=== PATIENT | male | born 1945 | race Caucasian/White ===

== ENCOUNTER 2017-09-19 09:43 | Inpatient (IN) | payer MEDICAID, MEDICARE ==
[~2017-09-19] VITALS: Ht 182.9 cm; Wt 131.5 kg
[2017-09-19 09:43] VITALS: Ht 182.9 cm; Wt 131.5 kg
[~2017-09-19 09:43] MED LIST: ALLOPURINOL100 MG PO; BACO TOP; CLEOCIN HCL300 MG PO; CLINDAMYCI600 MG/50 IV; COL100 PO; COLCHICINE0.6 M1 PO; COMTAN200 MG PO; ESCITALOPRAM10 M1 PO; FLO4 PO; HIBICLENS118 ML TOP; HUMULIN R100 U/1 M1 SQ; LAC PO; LORAZEPAM1 MG PO; MECLIZINE25 M3 PO; MELOXICAM7.5 M1; MELOXICAM7.5 M1 PO; MOM PO; MSC15 PO; NOR10T PO; NORCO1 TA2; NORCO1 TA2 PO; OMEPRAZOLE DR20 M1 PO; OXYC PO; OXYCONTIN10 MG PO; REQUIP0.5 MG; ROPINIROLE4 MG PO; SINEMET 25-1001 TAB PO; SINEMET 25-2501 TAB PO; SMZ-TMP1 TA1 PO; TERAZOSIN HCL2 MG PO; TYLENOL325 MG PO; ZESTRIL20 MG PO; ZIN PO
[2017-09-19 11:03] LABS: PLATELET COUNT 146 x10^3mcL (130-400); RED CELL DISTRIBUTION WIDTH 14.1 % (11.5-14.5)
[2017-09-19 11:04] LABS: BASOPHIL % 0 % (0-2)
[2017-09-19 11:17] LABS: CALCIUM 8.4 mg/dL (8.5-10.1); CREATININE SERUM 1.6 mg/dL (0.7-1.3)
[2017-09-19 11:23] LABS: T3 TOTAL 0.7 ng/mL
[2017-09-19 11:32] LABS: FREE T4 0.91 ng/dL (0.76-1.46); FREE THYROXINE INDEX 1.7 ug/dL (1.4-4.5); T4(THYROXINE) 5.3 ug/dL (4.7-13.3)
[2017-09-19 11:34] LABS: CK-MB 82.5 ng/mL (0-3.6)
[2017-09-19 11:43] LABS: BILIRUBIN TOTAL 0.7 mg/dL (0.20-1.00); C REACTIVE PROTEIN 8.1 mg/dL (<=0.9); TOTAL PROTEIN, SERUM 7.3 g/dL (6.4-8.2)
[2017-09-19 11:54] LABS: ERYTHROCYTE SED RATE 22 mm/hr (0-20)
[2017-09-19 13:35] VITALS: BP 144/70
[2017-09-19 13:46] LABS: UA SPECIFIC GRAVITY 1.015 (1.005-1.035); microscopic required? YES; urine erythrocyte 3+ (NEGATIVE)
[2017-09-19 13:53] LABS: MAGNESIUM 1.9 mg/dL (1.8-2.4); PHOSPHOROUS 3.8 mg/dL (2.5-4.9)
[2017-09-19 13:54] LABS: CHOLESTEROL/HDL RATIO 1.9
[2017-09-19 15:32] LABS: AMPHETAMINE QUAL UR NONE DETECTED (NEG <=1000)
[2017-09-19 15:55] VITALS: BP 135/66
[2017-09-19] MEDS ORDERED: NOR10 PO (16:16)
[2017-09-19 16:17] VITALS: BP 116/60
[2017-09-19] MEDS ORDERED: CYMBALTA60 M1 PO (16:39)
[2017-09-19 21:36] VITALS: BP 140/64
[2017-09-20 05:04] LABS: BASOPHIL % 0.3 % (0-2); PLATELET COUNT 144 x10^3mcL (130-400)
[2017-09-20 05:05] LABS: RED CELL DISTRIBUTION WIDTH 14.7 % (11.5-14.5)
[2017-09-20 05:13] LABS: CALCIUM 8.5 mg/dL (8.5-10.1); CARBON DIOXIDE 29.4 mmol/L (21-32); CHLORIDE SERUM 106 mmol/L (98-107); CREATININE SERUM 1.2 mg/dL (0.7-1.3); GFR1 > 60 mL/min; GLUCOSE SERUM 157 mg/dL (74-106); MAGNESIUM 1.8 mg/dL (1.8-2.4); PHOSPHOROUS 2.2 mg/dL (2.5-4.9); POTASSIUM SERUM 3.7 mmol/L (3.5-5.1); SODIUM SERUM 143 mmol/L (136-145)
[2017-09-20 05:48] VITALS: BP 121/54
[2017-09-20 09:20] VITALS: BP 146/65
[2017-09-20 09:35] VITALS: BP 136/64
[2017-09-20 17:41] VITALS: BP 126/55
[2017-09-20 21:40] VITALS: BP 115/49
[2017-09-20 21:57] VITALS: BP 188/63
[2017-09-21 04:50] VITALS: BP 112/51
[2017-09-21 06:27] LABS: PLATELET COUNT 145 x10^3mcL (130-400)
[2017-09-21 06:42] LABS: RED CELL DISTRIBUTION WIDTH 15.3 % (11.5-14.5)
[2017-09-21 06:43] LABS: BASOPHIL % 0 % (0-2)
[2017-09-21 06:44] LABS: CALCIUM 8.2 mg/dL (8.5-10.1); CARBON DIOXIDE 30.1 mmol/L (21-32); CHLORIDE SERUM 104 mmol/L (98-107); CREATININE SERUM 1.1 mg/dL (0.7-1.3); GFR1 > 60 mL/min; GLUCOSE SERUM 107 mg/dL (74-106); PHOSPHOROUS 2.8 mg/dL (2.5-4.9); POTASSIUM SERUM 3.5 mmol/L (3.5-5.1); SODIUM SERUM 141 mmol/L (136-145)
[2017-09-21 09:00] VITALS: BP 132/60
[2017-09-21 17:15] VITALS: BP 113/41
[2017-09-21 21:08] VITALS: BP 107/52
[2017-09-22 05:43] VITALS: BP 139/59
[2017-09-22 09:38] VITALS: BP 112/65
[2017-09-22 16:37] VITALS: BP 114/49
[2017-09-22 19:30] VITALS: BP 109/58
[2017-09-23 05:50] VITALS: BP 129/61
[2017-09-23 09:11] VITALS: BP 131/54
[2017-09-23 14:54] VITALS: BP 131/54
[2017-09-23] MEDS ORDERED: PULMICORT0.5 MG/2 M IH (14:57)
[2017-09-23] MEDS ORDERED: KLOR-CON M1010 MEQ PO (15:02)
[2017-09-23] MEDS ORDERED: LASIX20 MG PO (15:02)
== END 2017-09-23 20:23 | disposition home or self-care (01) | DRG 194 ==
LOC: ED 09:43 → DU 11:52 → MU 11:52 → DU 12:47 → MU 09-20 16:08
PROVIDERS: Family Medicine; Specialist
DX: I50.43 Acute on chronic combined systolic (congestive) and diastolic (congestive) heart failure (principal); J96.01 Acute respiratory failure with hypoxia; N17.0 Acute kidney failure with tubular necrosis; M62.82 Rhabdomyolysis; E83.51 Hypocalcemia; G20 Parkinson's disease; N39.0 Urinary tract infection, site not specified; E11.9 Type 2 diabetes mellitus without complications; F14.10 Cocaine abuse, uncomplicated; F11.10 Opioid abuse, uncomplicated; K70.10 Alcoholic hepatitis without ascites; K80.20 Calculus of gallbladder without cholecystitis without obstruction; K76.0 Fatty (change of) liver, not elsewhere classified; F15.10 Other stimulant abuse, uncomplicated; D64.9 Anemia, unspecified; Z79.4 Long term (current) use of insulin; Z68.39 Body mass index [BMI] 39.0-39.9, adult; F02.80 Dementia in other diseases classified elsewhere, unspecified severity, without behavioral disturbance, psychotic disturbance, mood disturbance, and anxiety
CPT/HCPCS: 36600; 83880; 84439; 97110-GP; 97116-GP; 97530-GP; G0480; J1940; J1956; J2060; J7030; J7613; J7620; J7626; J7644; Q0092